=== PATIENT | male | born 1955 | race Caucasian/White ===

== ENCOUNTER 2021-10-24 13:10 | Observation (INO) | payer MEDICARE ==
[2021-10-24] MEDS ORDERED: DUONEB 0.5-3 MG/3 ml Neb IH ONE (13:45)
[2021-10-24] MEDS ORDERED: solu-MEDROL 125 MG, Sterile H2O 10 ml 2 ML IV ONE ×2 (13:45)
[2021-10-24] MEDS ORDERED: Zithromax 500 MG/ 250 ML NaCl Premix 500 MG/250 ML IVPB IV STA (13:45)
[2021-10-24] MEDS ORDERED: ROCEPHIN 2 Gm-D5w 50ML BAG** 2 G/50 ML IVPB IV STA (13:46)
[2021-10-24] MEDS ORDERED: Zithromax 500 MG/ 250 ML NaCl Premix 500 MG/250 ML IVPB IV ONE (14:02)
[2021-10-24] MEDS ORDERED: solu-MEDROL ONE (14:02)
[2021-10-24] MEDS ORDERED: ROCEPHIN 2 Gm-D5w 50ML BAG** 2 G/50 ML IVPB IV ONE (14:02)
[2021-10-24] MEDS ORDERED: Sterile H2O 10 ml IJ ONE (14:02)
--- NOTE | 2021-10-24 14:10 | ERPHSYRPT ---
- History of Present Illness Time Seen by Provider: 10/24/21 13:15 Source: patient, EMS Exam Limitations: clinical condition Patient Subjective Stated Complaint: Weakness Triage Nursing Assessment: Patient brought back to ED via EMS and transferred to bed with assist of 4. Patient A+O X3. Patient's skin flushed, warm and dry. EMS was called out for patient having weakness and not feeling well for several days and was covid positive, but patient has not ever been tested for COVID. Patient A+O X 2, disoriented to time. O2 88% on room air upon arrival. Lungs noted to have wheezing throughout. Patient denies pain or discomfort. Physician History: 66 years old male with history of hypertension, hyperlipidemia, diabetes mellitus is brought in the ER by EMS with several days to weeks history of generalized weakness fatigue and tiredness with cough productive of clear yellow sputum and increasing shortness of breath. Patient is unvaccinated against COVID-19. Family noticed some confusion this morning. Patient is awake alert and not fully oriented. Patient oxygen saturation is 88% on room air, placed on 3 L oxygen and currently around 96% with obvious wheezing. Not a good historian and history is limited. Patient moving all 4 extremities. Timing/Duration: week(s), constant, gradual onset, worse Activities at Onset: activity, rest Severity of Dyspnea-Max: moderate Severity of Dyspnea-Current: moderate Possible Cause: illness exposure Modifying Factors: Worsens With: activity, coughing, exertion Associated Symptoms: wheezing, weakness, productive cough Allergies/Adverse Reactions: No Known Drug Allergies Allergy (Verified 10/24/21 13:16) Home Medications: Hydrocodone/Acetaminophen [Hydrocodon-Acetaminophn 10-325] 1 tab PO Q4-6HPRN PRN 06/02/16 [History] lisinopriL [Lisinopril] 40 mg PO DAILY 06/02/16 [History] Atorvastatin Calcium [Lipitor] 40 mg PO DAILY 10/24/21 [History] Dulaglutide [Trulicity] 0.75 mg SQ WEEKLY 10/24/21 [History] Gabapentin [Neurontin] 600 mg PO TID 10/24/21 [History] Metformin HCl [Metformin ER Osmotic] 1,000 mg PO DAILY 10/24/21 [History] Hx Tetanus, Diphtheria Vaccination/Date Given: Yes Hx Influenza Vaccination/Date Given: No Hx Pneumococcal Vaccination/Date Given: No Immunizations Up to Date: Yes Travel Risk - International Travel Have you traveled outside of the country in past 3 weeks: No - Coronavirus Screening Are you exhibiting any of the following symptoms?: Yes Symptoms: Fever, Shortness of Breath, Vomiting/Diarrhea Close contact with a COVID-19 positive Pt in past 14-21 Days: No - Vaccine Status Have you recieved a Covid-19 vaccination: No - Review of Systems Constitutional: Fever, Chills, Weakness Eyes: No Symptoms Ears, Nose, & Throat: No Symptoms Respiratory: Cough, Dyspnea, Dyspnea on Exertion (LIMA), Wheezing Cardiac: No Symptoms Abdominal/Gastrointestinal: No Symptoms Genitourinary Symptoms: No Symptoms Musculoskeletal: Myalgias Skin: No Symptoms Neurological: No Symptoms Hematologic/Lymphatic: No Symptoms Immunological/Allergic: No Symptoms - Past Medical History Pertinent Past Medical History: Yes Neurological History: No Pertinent History ENT History: No Pertinent History Cardiac History: High Cholesterol, Hypertension Respiratory History: Sleep Apnea Endocrine Medical History: Diabetes Type II Musculoskeletal History: Arthritis GI Medical History: No Pertinent History History: No Pertinent History Psycho-Social History: No Pertinent History Male Reproductive Disorders: No Pertinent History Other Medical History: spondylosis, sciatica, obesity, polio with L UE affected. - Past Surgical History Past Surgical History: No Neuro Surgical History: No Pertinent History Cardiac: No Pertinent History Respiratory: No Pertinent History Gastrointestinal: No Pertinent History Genitourinary: No Pertinent History Musculoskeletal: No Pertinent History Male Surgical History: Prostate Surgery Other Surgical History: vasectomy - Social History Smoking Status: Never smoker Exposure to second hand smoke: No Drug Use: none Patient Lives Alone: No () - Nursing Vital Signs Nursing Vital Signs: Initial Vital Signs Temperature 101.5 F 10/24/21 13:17 Pulse Rate 112 H 10/24/21 13:17 Respiratory Rate 23 10/24/21 13:17 Blood Pressure 110/86 10/24/21 13:17 O2 Sat by Pulse Oximetry 88 L 10/24/21 13:17 Pain Scale Pain Intensity 0 - Physical Exam General Appearance: no apparent distress, alert Eye Exam: PERRL/EOMI, eyes nml inspection Ears, Nose, Throat Exam: nasal congestion, pharyngeal erythema Neck Exam: normal inspection, supple, full range of motion Respiratory Exam: diminished breath sounds, crackles/rales, rhonchi, wheezing Cardiovascular/Chest Exam: normal heart sounds, tachycardia Abdominal/Gastrointestinal Exam: soft, normal bowel sounds, No tenderness Extremity Exam: non-tender, normal range of motion Neurologic Exam: alert, cooperative, drafting technician II-XII nml as tested, No oriented x 3 Skin Exam: normal color SpO2 Interpretation: O2 applied SpO2: 88 O2 Delivery: Nasal Cannula Ordered Tests: Medication Summary Discontinued Medications Generic Name Dose Route Start Last Admin Trade Name Freq PRN Reason Stop Dose Admin Acetaminophen 1,000 mg 10/24/21 14:32 10/24/21 14:53 Acetaminophen 500 Mg Tablet PO 10/24/21 14:33 1,000 mg STAT ONE Administration Acetaminophen Confirm 10/24/21 14:46 Acetaminophen 500 Mg Tablet Administered 10/24/21 14:47 Dose 1,000 mg .ROUTE .STK-MED ONE Acetaminophen 650 mg 10/24/21 17:49 Acetaminophen 325 Mg Tablet PO 11/23/21 17:48 Q4H PRN PRN PAIN AND/OR FEVER Acetaminophen 650 mg 10/24/21 17:57 Acetaminophen 325 Mg Tablet PO 11/23/21 17:56 Q4H PRN PRN PAIN AND/OR FEVER Acetaminophen 500 - 1,000 mg 10/25/21 07:44 Acetaminophen 500 Mg Tablet PO 11/24/21 07:43 Q4H PRN PRN TEMP > 100.4 ORALLY Hydrocodone Bitart/Acetaminophen 1 tablet 10/24/21 21:08 10/27/21 09:15 Hydrocodone/Acetamin 10-325 Mg Tablet PO 10/29/21 21:07 1 tablet Q4H PRN PRN Administration PAIN Hydrocodone Bitart/Acetaminophen 1 tablet 10/25/21 08:28 Hydrocodone/Acetamin 10-325 Mg Tablet PO 10/30/21 08:27 Q4H PRN PRN PAIN Albuterol Sulfate 4 puff 10/24/21 14:30 10/24/21 14:25 Albuterol Common Canister Inhaler 10/24/21 14:31 4 puff STAT ONE Administration Albuterol Sulfate 4 puff 10/24/21 19:00 10/27/21 07:30 Albuterol Common Canister Inhaler 11/23/21 18:59 4 puff QIDRT VILMA Administration Albuterol Sulfate 4 puff 10/24/21 18:00 Albuterol Common Canister Inhaler 11/23/21 17:59 Q4H PRN PRN SHORTNESS OF BREATH/WHEEZING Albuterol/Ipratropium 3 ml 10/24/21 13:45 10/24/21 16:15 Ipratropium/Albuterol Sulfate 3 Ml Ampul.Neb IH 10/24/21 13:46 3 ml STAT ONE Administration Baricitinib 2 mg 10/25/21 10:00 10/27/21 09:16 Baricitinib 2 Mg Tablet PO 11/07/21 10:01 2 mg DAILY VILMA Administration Methylprednisolone Sodium 0 mg 10/24/21 13:45 10/24/21 14:08 Succinate 125 mg/ Sterile IV 10/24/21 13:46 125 mg Water 2 ml STAT ONE Administration Dexamethasone Sodium Phosphate 6 mg 10/25/21 10:00 Dexamethasone Sod Phosphate 10 Mg/Ml IV 11/24/21 09:59 DAILY [facility] Dexamethasone Sodium Phosphate 6 mg 10/25/21 10:00 Dexamethasone Sod Phosphate 10 Mg/Ml IV 11/24/21 09:59 DAILY [facility] Dexamethasone Sodium Phosphate 8 mg 10/24/21 18:17 10/24/21 18:46 Dexamethasone Sod Phosphate 10 Mg/Ml IV 11/23/21 18:14 8 mg DAILY [facility] Administration Dexamethasone Sodium Phosphate 8 mg 10/25/21 10:00 10/27/21 09:15 Dexamethasone Sod Phosphate 10 Mg/Ml IV 11/03/21 10:01 8 mg DAILY [facility] Administration Diphenoxylate HCl/Atropine 2 tablet 10/25/21 00:39 10/26/21 09:52 Diphenoxylate Hcl/Atropine 1 Tablet PO 11/24/21 00:38 2 tablet QID PRN PRN Administration DIARRHEA Enoxaparin Sodium 40 mg 10/25/21 10:00 Enoxaparin Sodium 40 Mg/0.4 Ml Syringe SQ 11/24/21 09:59 DAILY [facility] Enoxaparin Sodium 40 mg 10/25/21 10:00 Enoxaparin Sodium 40 Mg/0.4 Ml Syringe SQ 11/24/21 09:59 DAILY [facility] Enoxaparin Sodium 60 mg 10/24/21 18:17 10/24/21 19:07 Enoxaparin Sodium 40 Mg/0.4 Ml Syringe SQ 11/23/21 18:15 60 mg DAILY VILMA Administration Enoxaparin Sodium Confirm 10/24/21 18:46 Enoxaparin Sodium 60 Mg/0.6 Ml Syringe Administered 10/24/21 18:47 Dose 60 mg SQ .STK-MED ONE Enoxaparin Sodium 70 mg 10/25/21 10:00 10/27/21 09:16 Enoxaparin Sodium 80 Mg/0.8 Ml Syringe SQ 11/24/21 09:59 70 mg DAILY VILMA Administration Gabapentin 600 mg 10/24/21 22:00 10/27/21 09:14 Gabapentin 300 Mg Capsule PO 11/23/21 21:59 600 mg TID VILMA Administration Azithromycin 500 mg in 250 mls @ 250 mls/hr 10/24/21 13:45 10/24/21 15:10 Zithromax 500 Mg/ 250 Ml Nacl Premix IV 10/24/21 14:44 Infused STAT STA Infusion Ceftriaxone Sodium/Dextrose 2 g in 50 mls @ 100 mls/hr 10/24/21 13:46 10/24/21 14:51 Rocephin 2 Gm-D5w 50ml Bag IV 10/24/21 14:15 Infused STAT STA Infusion Azithromycin Confirm 10/24/21 14:02 Zithromax 500 Mg/ 250 Ml Nacl Premix Administered 10/24/21 14:03 Dose 500 mg in 250 mls @ ud IV .STK-MED ONE Ceftriaxone Sodium/Dextrose Confirm 10/24/21 14:02 Rocephin 2 Gm-D5w 50ml Bag Administered 10/24/21 14:03 Dose 2 g in 50 mls @ ud IV .STK-MED ONE Azithromycin 500 mg in 250 mls @ 250 mls/hr 10/25/21 10:00 Zithromax 500 Mg/ 250 Ml Nacl Premix IV 11/24/21 09:59 Q24H10 VILMA Ceftriaxone Sodium/Dextrose 2 g in 50 mls @ 100 mls/hr 10/25/21 10:00 Rocephin 2 Gm-D5w 50ml Bag IV 10/28/21 09:59 Q24H10 VILMA Remdesivir 200 mg/ Sodium 250 mls @ 125 mls/hr 10/24/21 17:49 10/24/21 19:01 Chloride IV 10/24/21 19:48 Not Given ONCE ONE Remdesivir 200 mg/ Sodium 250 mls @ 125 mls/hr 10/24/21 18:04 10/24/21 21:25 Chloride IV 10/24/21 20:03 125 mls/hr ONCE ONE Administration Remdesivir 100 mg/ Sodium 100 mls @ 100 mls/hr 10/25/21 21:00 10/26/21 21:19 Chloride IV 10/28/21 21:59 100 mls/hr Q24H VILMA Administration Sodium Chloride Confirm 10/24/21 21:12 Sodium Chloride 0.9% 250 Ml Administered 10/24/21 21:13 Dose 250 mls @ ud IV .STK-MED ONE Sodium Chloride 1,000 mls @ 30 mls/hr 10/25/21 07:45 Sodium Chloride 0.9% 1000 Ml IV 11/24/21 07:44 .Q24H VILMA Insulin Human Lispro 0 unit 10/24/21 17:49 Insulin Lispro 1 Unit SQ 11/23/21 17:48 UD PRN HYPERGLYCEMIA Insulin Human Lispro 0 unit 10/24/21 18:03 10/26/21 21:20 Insulin Lispro 1 Unit SQ 11/23/21 18:02 15 unit UD PRN Administration HYPERGLYCEMIA Lisinopril 40 mg 10/25/21 10:00 10/27/21 09:15 Lisinopril 20 Mg Tablet PO 11/24/21 09:59 40 mg DAILY VILMA Administration Lorazepam 1 mg 10/24/21 23:50 Lorazepam 2 Mg/1 Ml 2 Mg Vial IV 11/23/21 23:49 Q4H PRN PRN ANXIETY/AGITATION Metformin HCl 1,000 mg 10/25/21 09:00 10/27/21 08:09 Metformin Hcl 500 Mg Tablet PO 11/24/21 08:59 1,000 mg DAILY@0800 VILMA Administration Methylprednisolone Sodium Succinate Confirm 10/24/21 14:02 Methylprednis Sod Succ 125 Mg/2 Ml Vial Administered 10/24/21 14:03 Dose 125 mg .ROUTE .STK-MED ONE Miscellaneous Information 1 each 10/25/21 08:45 Medication Intervention 1 Each Each 11/24/21 08:44 .RN TO CHECK WITH PT VILMA Ondansetron HCl 4 mg 10/25/21 07:44 Ondansetron Hcl 4 Mg/2 Ml Vial IV 11/24/21 07:43 Q6H PRN PRN NAUSEA/VOMITING Remdesivir Confirm 10/24/21 21:12 Remdesivir 100 Mg Vial Administered 10/24/21 21:13 Dose 200 mg IV .STK-MED ONE Simvastatin 40 mg 10/25/21 10:00 10/27/21 09:14 Simvastatin 20 Mg Tablet PO 11/24/21 09:59 40 mg DAILY VILMA Administration Sterile Water Confirm 10/24/21 14:02 Water For Injection,Sterile 10 Ml Vial Administered 10/24/21 14:03 Dose 10 ml IJ .STK-MED ONE Lab/Rad Data: Laboratory Result Diagrams 10/24/21 13:45 10/24/21 13:45 Laboratory Results 10/24/21 10/24/21 10/24/21 Range/Units 16:58 15:24 14:14 WBC (4.0-10.5) K/mm3 RBC (4.1-5.6) M/mm3 Hgb (12.5-18.0) gm/dl Hct (42-50) % MCV (78-100) fl MCH (26-32) pg MCHC (32-36) g/dl RDW (11.5-14.0) % Plt Count (150-450) K/mm3 MPV (7.5-11.0) fl Segmented Neutrophils (36.-66.) % Lymphocytes (Manual) (24-44) % Monocytes (Manual) (0.0-12.0) % Platelet Estimate (NORMAL) RBC Morphology Sodium (137-145) mmol/L Potassium (3.5-5.1) mmol/L Chloride (98-107) mmol/L Carbon Dioxide (22-30) mmol/L Anion Gap (5-15) MEQ/L BUN (9-20) mg/dL Creatinine (0.66-1.25) mg/dL Estimated GFR ML/MIN Glucose (74-106) mg/dL Lactic Acid 1.5 (0.4-2.0) Calcium (8.4-10.2) mg/dL Magnesium (1.6-2.3) mg/dL Total Bilirubin (0.2-1.3) mg/dL AST (17-59) U/L ALT (0-50) U/L Alkaline Phosphatase (38-126) U/L Troponin I 0.032 (0.000-0.034) ng/mL NT-Pro-B Natriuret Pep (0-900) pg/mL Serum Total Protein (6.3-8.2) g/dL Albumin (3.5-5.0) g/dL Urine Color (YELLOW) Urine Appearance (CLEAR) Urine pH (5-6) Ur Specific [place] (1.005-1.025) Urine Protein (Negative) Urine Ketones (NEGATIVE) Urine Blood (0-5) Mate[place]/ul Urine Nitrite (NEGATIVE) Urine Bilirubin (NEGATIVE) Urine Urobilinogen (0-1) mg/dL Ur Leukocyte Esterase (NEGATIVE) Urine WBC (Auto) (0-5) /HPF Urine RBC (Auto) (0-2) /HPF U Epithel Cells (Auto) (FEW) /HPF Urine Bacteria (Auto) (NEGATIVE) /HPF Urine Culture Reflexed (NO) Urine Glucose (NEGATIVE) mg/dL Influenza Type A Ag NEGATIVE (NEGATIVE) Influenza Type B Ag NEGATIVE (NEGATIVE) RSV (PCR) NEGATIVE (Negative) SARS-CoV-2 (PCR) POSITIVE A (NEGATIVE) 10/24/21 10/24/21 10/24/21 Range/Units 13:47 13:45 13:45 WBC 10.9 H (4.0-10.5) K/mm3 RBC 4.28 (4.1-5.6) M/mm3 Hgb 12.7 (12.5-18.0) gm/dl Hct 39.2 L (42-50) % MCV 91.6 (78-100) fl MCH 29.7 (26-32) pg MCHC 32.4 (32-36) g/dl RDW 13.9 (11.5-14.0) % Plt Count 239 (150-450) K/mm3 MPV 9.1 (7.5-11.0) fl Segmented Neutrophils 85 H (36.-66.) % Lymphocytes (Manual) 8 L (24-44) % Monocytes (Manual) 7 (0.0-12.0) % Platelet Estimate NORMAL (NORMAL) RBC Morphology NORMAL Sodium 133 L (137-145) mmol/L Potassium 4.4 (3.5-5.1) mmol/L Chloride 98 (98-107) mmol/L Carbon Dioxide 23 (22-30) mmol/L Anion Gap 16.6 H (5-15) MEQ/L BUN 35 H (9-20) mg/dL Creatinine 1.25 (0.66-1.25) mg/dL Estimated GFR > 60.0 ML/MIN Glucose 157 H (74-106) mg/dL Lactic Acid (0.4-2.0) Calcium 8.6 (8.4-10.2) mg/dL Magnesium 1.9 (1.6-2.3) mg/dL Total Bilirubin 0.70 (0.2-1.3) mg/dL AST 69 H (17-59) U/L ALT 28 (0-50) U/L Alkaline Phosphatase 72 (38-126) U/L Troponin I (0.000-0.034) ng/mL NT-Pro-B Natriuret Pep 136 (0-900) pg/mL Serum Total Protein 6.6 (6.3-8.2) g/dL Albumin 3.6 (3.5-5.0) g/dL Urine Color BRENDA (YELLOW) Urine Appearance CLOUDY (CLEAR) Urine pH 5.0 (5-6) Ur Specific [place] 1.019 (1.005-1.025) Urine Protein 100 (Negative) Urine Ketones TRACE (NEGATIVE) Urine Blood MODERATE (0-5) Mate[place]/ul Urine Nitrite NEGATIVE (NEGATIVE) Urine Bilirubin NEGATIVE (NEGATIVE) Urine Urobilinogen NEGATIVE (0-1) mg/dL Ur Leukocyte Esterase NEGATIVE (NEGATIVE) Urine WBC (Auto) 3-5 (0-5) /HPF Urine RBC (Auto) 6-10 (0-2) /HPF U Epithel Cells (Auto) RARE (FEW) /HPF Urine Bacteria (Auto) FEW (NEGATIVE) /HPF Urine Culture Reflexed YES (NO) Urine Glucose NEGATIVE (NEGATIVE) mg/dL Influenza Type A Ag (NEGATIVE) Influenza Type B Ag (NEGATIVE) RSV (PCR) (Negative) SARS-CoV-2 (PCR) (NEGATIVE) 10/24/21 Range/Units 13:45 WBC (4.0-10.5) K/mm3 RBC (4.1-5.6) M/mm3 Hgb (12.5-18.0) gm/dl Hct (42-50) % MCV (78-100) fl MCH (26-32) pg MCHC (32-36) g/dl RDW (11.5-14.0) % Plt Count (150-450) K/mm3 MPV (7.5-11.0) fl Segmented Neutrophils (36.-66.) % Lymphocytes (Manual) (24-44) % Monocytes (Manual) (0.0-12.0) % Platelet Estimate (NORMAL) RBC Morphology Sodium (137-145) mmol/L Potassium (3.5-5.1) mmol/L Chloride (98-107) mmol/L Carbon Dioxide (22-30) mmol/L Anion Gap (5-15) MEQ/L BUN (9-20) mg/dL Creatinine (0.66-1.25) mg/dL Estimated GFR ML/MIN Glucose (74-106) mg/dL Lactic Acid (0.4-2.0) Calcium (8.4-10.2) mg/dL Magnesium (1.6-2.3) mg/dL Total Bilirubin (0.2-1.3) mg/dL AST (17-59) U/L ALT (0-50) U/L Alkaline Phosphatase (38-126) U/L Troponin I 0.027 (0.000-0.034) ng/mL NT-Pro-B Natriuret Pep (0-900) pg/mL Serum Total Protein (6.3-8.2) g/dL Albumin (3.5-5.0) g/dL Urine Color (YELLOW) Urine Appearance (CLEAR) Urine pH (5-6) Ur Specific [place] (1.005-1.025) Urine Protein (Negative) Urine Ketones (NEGATIVE) Urine Blood (0-5) Mateus/ul Urine Nitrite (NEGATIVE) Urine Bilirubin (NEGATIVE) Urine Urobilinogen (0-1) mg/dL Ur Leukocyte Esterase (NEGATIVE) Urine WBC (Auto) (0-5) /HPF Urine RBC (Auto) (0-2) /HPF U Epithel Cells (Auto) (FEW) /HPF Urine Bacteria (Auto) (NEGATIVE) /HPF Urine Culture Reflexed (NO) Urine Glucose (NEGATIVE) mg/dL Influenza Type A Ag (NEGATIVE) Influenza Type B Ag (NEGATIVE) RSV (PCR) (Negative) SARS-CoV-2 (PCR) (NEGATIVE) - Progress Progress: improved Air Movement: fair Progress Note: 10/24/21 15:29 66 years old is evaluated for fever chills weakness, confusion and difficulty breathing. Patient was hypoxic on room air around 88%, placed on 3 L oxygen and satting around 96%. Given albuterol puffs and Solu-Medrol, x-ray showed bilateral airspace disease and given a dose of antibiotics. Has minimally elevated white count, grossly unremarkable chemistries. Patient is a positive contact with COVID-19. COVID-19 testing is pending currently. Discussed with Dr. Barton and patient is being admitted. Blood Culture(s) Obtained: Yes Antibiotics given: Yes Discussed with Dr.: Other () Counseled pt/family regarding: lab results, diagnosis, rad results - Departure Departure Disposition: Observation Clinical Impression: COVID-19, Generalized weakness Respiratory failure Qualifiers: Chronicity: acute Respiratory failure complication: hypoxia Qualified Code(s): J96.01 - Acute respiratory failure with hypoxia Bilateral pneumonia Qualifiers: Pneumonia type: due to unspecified organism Lung location: unspecified part of lung Qualified Code(s): J18.9 - Pneumonia, unspecified organism Condition: Stable Critical Care Time: No
[2021-10-24 14:30] LABS: Hematocrit 39.2 % (42-50); Hemoglobin 12.7 gm/dl (12.5-18.0); Mean Cell Volume 91.6 fl (78-100); Mean Corpuscular Hemoglobin 29.7 pg (26-32); Mean Corpuscular Hgb Concent. 32.4 g/dl (32-36); Mean Platelet Volume 9.1 fl (7.5-11.0); Platelet Count 239 K/mm3 (150-450); Red Blood Count 4.28 M/mm3 (4.1-5.6); Red Cell Distribution Width 13.9 % (11.5-14.0); White Blood Count 10.9 K/mm3 (4.0-10.5)
[2021-10-24] MEDS ORDERED: VENTOLIN COMMON CANISTER IH ONE (14:30)
[2021-10-24] MEDS ORDERED: TYLENOL EXTRA STRENGTH 500 MG PO ONE (14:32)
[2021-10-24 14:41] LABS: ALBUMIN 3.6 g/dL (3.5-5.0); ALKALINE PHOSPHATASE 72 U/L (38-126); ANION GAP 16.6 MEQ/L (5-15); BLOOD UREA NITROGEN 35 mg/dL (9-20); CHLORIDE 98 mmol/L (98-107); Calcium 8.6 mg/dL (8.4-10.2); Carbon Dioxide 23 mmol/L (22-30); Creatinine 1 1.25 mg/dL (0.66-1.25); EST GLOMERULAR FILTRATION RATE > 60.0 ML/MIN; Glucose 157 mg/dL (74-106); MAGNESIUM 1.9 mg/dL (1.6-2.3); NT PRO BNP 136 pg/mL (0-900); Potassium 4.4 mmol/L (3.5-5.1); SGOT/AST 69 U/L (17-59); SGPT/ALT 28 U/L (0-50); SODIUM 133 mmol/L (137-145); Total Protein 6.6 g/dL (6.3-8.2)
[2021-10-24] MEDS ORDERED: TYLENOL EXTRA STRENGTH 500 MG ONE (14:46)
[2021-10-24 14:57] LABS: Appearance CLOUDY (CLEAR); Bacteria FEW /HPF (NEGATIVE); Bilirubin NEGATIVE (NEGATIVE); Blood MODERATE Ery/ul (0-5); Epithelial Cells RARE /HPF (FEW); Glucose NEGATIVE (NEGATIVE); Ketones TRACE (NEGATIVE); Leukocyte Esterase NEGATIVE (NEGATIVE); Nitrite NEGATIVE (NEGATIVE); Protein,Urine Dip 100 (Negative); Specific Gravity 1.019 (1.005-1.025); Urobilinogen NEGATIVE mg/dL (0-1)
[2021-10-24 15:01] LABS: Lymphocytes 8 % (24-44); Monocyte 7 % (0.0-12.0); Neutrophils 85 % (36.-66.); Platelet Estimate NORMAL (NORMAL); Total Cells Counted 100
[2021-10-24 16:29] LABS: INFLUENZA A NEGATIVE (NEGATIVE); INFLUENZA B NEGATIVE (NEGATIVE); RESPIRATORY SYNCTIAL VIRUS NEGATIVE (Negative)
[2021-10-24 16:39] LABS: SARS-CoV-2 Xpert Express POSITIVE (NEGATIVE)
[2021-10-24] MEDS ORDERED: TYLENOL 325 MG PO PRN ×2 (17:49→17:57)
[2021-10-24] MEDS ORDERED: REMDESIVIR 200 MG in Sodium Chloride 0.9% 250 ML 250 ML IV ONE ×2 (17:49→18:04)
[2021-10-24] MEDS ORDERED: HUMALOG SQ PRN (17:49)
[2021-10-24] MEDS: VENTOLIN COMMON CANISTER IH SCH (17:50)
[2021-10-24] MEDS ORDERED: VENTOLIN COMMON CANISTER IH PRN (18:00)
[2021-10-24] MEDS ORDERED: DECADRON 10MG INJ. IV SCH (18:17)
[2021-10-24] MEDS ORDERED: ENOXAPARIN SODIUM SQ SCH (18:17)
[2021-10-24] MEDS ORDERED: ENOXAPARIN SODIUM SQ ONE (18:46)
[2021-10-24] MEDS ORDERED: REMDESIVIR IV ONE (21:12)
[2021-10-24] MEDS ORDERED: Sodium Chloride 0.9% 250 ML 250 ML IV ONE (21:12)
[2021-10-24] MEDS: HYDROCODONE-ACETAMIN 10-325 MG PO PRN (21:25)
[2021-10-24] MEDS: NEURONTIN 300 MG PO SCH (21:25)
[2021-10-24] MEDS: HUMALOG SQ PRN (21:26)
--- NOTE | 2021-10-24 22:56 | XRAY ---
Indication: Fever and short of breath. Positive Covid 19. Comparison: June 02, 2016. Portable apical lordotic chest demonstrate new mild diffuse bilateral patchy airspace disease without consolidation/large effusion. Heart not enlarged again with tortuous descending aorta. Bony thorax intact again with mild osteopenia and degenerative changes.
[2021-10-24] MEDS ORDERED: Ativan 2 MG/1 ML VIAL IV PRN (23:50)
[2021-10-25] MEDS ORDERED: Lomotil PO PRN (00:39)
[2021-10-25] MEDS: HYDROCODONE-ACETAMIN 10-325 MG PO PRN ×5 (06:30→23:53)
[2021-10-25] MEDS: VENTOLIN COMMON CANISTER IH SCH ×4 (06:50→19:47)
[2021-10-25] MEDS ORDERED: Zofran 4 MG/2 ML VIAL IV PRN (07:44)
[2021-10-25] MEDS ORDERED: TYLENOL EXTRA STRENGTH 500 MG PO PRN (07:44)
[2021-10-25] MEDS ORDERED: Sodium Chloride 0.9% 1000 ML 1,000 ML IV SCH (07:45)
[2021-10-25] MEDS: HUMALOG SQ PRN ×4 (08:03→20:41)
[2021-10-25] MEDS ORDERED: HYDROCODONE-ACETAMIN 10-325 MG PO PRN (08:28)
[2021-10-25] MEDS ORDERED: NON-FORMULARY ITEM (Dulaglutide [Trulicity] 0.75 MG/0.5 ML Pen.Injctr) SQ SCH (08:30)
[2021-10-25] MEDS ORDERED: MEDICATION INTERVENTION MC SCH (08:45)
[2021-10-25 09:17] LABS: A-aADO2 110; ABG HEMOGLOBIN 13.6; ABG POTASSIUM 3.5 (3.5-5.1); ABG SITE RIGHT RADIAL; ALLEN TEST OK? YES; ARTERIAL BLD GAS O2 SATURATION 96.1 % (95-100); ARTERIAL BLOOD GAS BASE EXCESS -5.8 (-2.0-2.0); ARTERIAL BLOOD GAS FIO2 32 %; ARTERIAL BLOOD GAS PCO2 37 mmHg (35-45); ARTERIAL BLOOD GAS PO2 72 mmHg (75-100); ARTERIAL BLOOD GAS pH 7.33 (7.35-7.45); CARBOXYHEMOGLOBIN 1.6 % THgb (0.0-6.9); HCO3- 19.5 (22-28); HGB O2 SAT 93.9 g/dF (94-100); Methhemoglobin 0.8 % (1.4-1.5)
[2021-10-25 09:29] LABS: Hematocrit 38.7 % (42-50); Hemoglobin 12.7 gm/dl (12.5-18.0); Mean Cell Volume 90.6 fl (78-100); Mean Corpuscular Hemoglobin 29.7 pg (26-32); Mean Corpuscular Hgb Concent. 32.8 g/dl (32-36); Mean Platelet Volume 8.9 fl (7.5-11.0); Platelet Count 256 K/mm3 (150-450); Red Blood Count 4.27 M/mm3 (4.1-5.6); Red Cell Distribution Width 13.7 % (11.5-14.0); White Blood Count 9.8 K/mm3 (4.0-10.5)
[2021-10-25 09:31] LABS: ALBUMIN 3.7 g/dL (3.5-5.0); ANION GAP 17.1 MEQ/L (5-15); BILIRUBIN,TOTAL 0.5 mg/dL (0.2-1.3); Calcium 8.5 mg/dL (8.4-10.2); Creatinine 1 1.43 mg/dL (0.66-1.25); EST GLOMERULAR FILTRATION RATE 52.3 ML/MIN; Potassium 3.6 mmol/L (3.5-5.1); Total Protein 7.2 g/dL (6.3-8.2)
[2021-10-25] MEDS ORDERED: DECADRON 10MG INJ. IV SCH ×2 (10:00)
[2021-10-25] MEDS ORDERED: NON-FORMULARY ITEM (Lisinopril [Lisinopril] 40 MG Tablet) PO SCH (10:00)
[2021-10-25] MEDS ORDERED: NON-FORMULARY ITEM (Metformin Hcl [Metformin Er Osmotic] 1,000 MG Tab.Er.24) PO SCH (10:00)
[2021-10-25] MEDS ORDERED: ROCEPHIN 2 Gm-D5w 50ML BAG** 2 G/50 ML IVPB IV SCH (10:00)
[2021-10-25] MEDS ORDERED: ENOXAPARIN SODIUM SQ SCH ×3 (10:00)
[2021-10-25] MEDS ORDERED: Zithromax 500 MG/ 250 ML NaCl Premix 500 MG/250 ML IVPB IV SCH (10:00)
[2021-10-25] MEDS ORDERED: LIPITOR 40MG PO SCH (10:00)
[2021-10-25] MEDS: Glucophage 500 MG PO SCH (10:16)
[2021-10-25] MEDS: Zestril 20 MG PO SCH (10:17)
[2021-10-25] MEDS: NEURONTIN 300 MG PO SCH ×3 (10:17→21:33)
[2021-10-25] MEDS: OLUMIANT PO SCH (10:17)
[2021-10-25] MEDS: DECADRON 10MG INJ. IV SCH (10:18)
[2021-10-25] MEDS: ZOCOR 20MG PO SCH (10:18)
[2021-10-25] MEDS: ENOXAPARIN SODIUM SQ SCH (10:18)
[2021-10-25 11:48] LABS: BAND 1 % (0.0-2.0); Lymphocytes 5 % (24-44); Monocyte 2 % (0.0-12.0); Neutrophils 92 % (36.-66.); Total Cells Counted 100
[2021-10-25 11:51] LABS: Platelet Estimate NORMAL (NORMAL)
[2021-10-25] MEDS: REMDESIVIR 100 MG in Sodium Chloride 0.9% 100 ML BAG 100 ML IV SCH (20:30)
[2021-10-26] MEDS: HYDROCODONE-ACETAMIN 10-325 MG PO PRN ×4 (05:43→20:01)
[2021-10-26 06:48] LABS: Hematocrit 42.4 % (42-50); Hemoglobin 13.8 gm/dl (12.5-18.0); Mean Cell Volume 91.2 fl (78-100); Mean Corpuscular Hemoglobin 29.7 pg (26-32); Mean Corpuscular Hgb Concent. 32.5 g/dl (32-36); Mean Platelet Volume 9.3 fl (7.5-11.0); Platelet Count 287 K/mm3 (150-450); Red Blood Count 4.65 M/mm3 (4.1-5.6); Red Cell Distribution Width 13.7 % (11.5-14.0); White Blood Count 13.6 K/mm3 (4.0-10.5)
[2021-10-26 07:40] LABS: ALBUMIN 3.5 g/dL (3.5-5.0); ALKALINE PHOSPHATASE 80 U/L (38-126); ANION GAP 17.9 MEQ/L (5-15); BLOOD UREA NITROGEN 50 mg/dL (9-20); CHLORIDE 100 mmol/L (98-107); Calcium 8.9 mg/dL (8.4-10.2); Carbon Dioxide 20 mmol/L (22-30); Creatinine 1 1.21 mg/dL (0.66-1.25); EST GLOMERULAR FILTRATION RATE > 60.0 ML/MIN; Glucose 360 mg/dL (74-106); Potassium 3.9 mmol/L (3.5-5.1); SGOT/AST 56 U/L (17-59); SGPT/ALT 41 U/L (0-50); SODIUM 134 mmol/L (137-145); Total Protein 6.7 g/dL (6.3-8.2)
[2021-10-26] MEDS: Glucophage 500 MG PO SCH (08:09)
[2021-10-26] MEDS: HUMALOG SQ PRN ×4 (08:13→21:20)
[2021-10-26] MEDS: VENTOLIN COMMON CANISTER IH SCH ×4 (08:53→18:42)
[2021-10-26] MEDS: Zestril 20 MG PO SCH (09:12)
[2021-10-26] MEDS: ENOXAPARIN SODIUM SQ SCH (09:12)
[2021-10-26] MEDS: NEURONTIN 300 MG PO SCH ×3 (09:12→21:19)
[2021-10-26] MEDS: DECADRON 10MG INJ. IV SCH (09:13)
[2021-10-26] MEDS: ZOCOR 20MG PO SCH (09:13)
[2021-10-26] MEDS: OLUMIANT PO SCH (09:55)
--- NOTE | 2021-10-26 13:16 | PCM.NOTE ---
Date and Time: 10/26/21 1314 Subjective Assessment: still very shortness of breath - Review of Systems Constitutional: No Fever, No Chills Eyes: No Symptoms Ears, Nose, & Throat: No Symptoms Respiratory: Cough, Short Of Breath, Wheezing Cardiac: No Chest Pain, No Edema, No Syncope Abdominal/Gastrointestinal: No Abdominal Pain, No Nausea, No Vomiting, No Diarrhea Genitourinary Symptoms: No Dysuria Musculoskeletal: No Back Pain, No Neck Pain Skin: No Rash Neurological: No Dizziness, No Focal Weakness, No Sensory Changes Psychological: No Symptoms Endocrine: No Symptoms Hematologic/Lymphatic: No Symptoms Immunological/Allergic: No Symptoms Objective Exam General Appearance: no apparent distress, alert Neurologic Exam: alert, oriented x 3, cooperative, normal mood/affect, nml cerebellar function, sensation nml, No motor deficits Skin Exam: normal color, warm, dry Eye Exam: PERRL, EOMI, eyes nml inspection Ears, Nose, Throat Exam: normal ENT inspection, pharynx normal, moist mucous membranes Neck Exam: normal inspection, non-tender, supple, full range of motion Respiratory Exam: diminished breath sounds, crackles/rales, rhonchi, wheezing, No respiratory distress Cardiovascular Exam: regular rate/rhythm, normal heart sounds Gastrointestinal/Abdomen Exam: soft, No tenderness, No mass Extremity Exam: normal inspection, normal range of motion Back Exam: normal inspection, normal range of motion, No CVA tenderness, No vertebral tenderness Male Genitalia Exam: deferred Rectal Exam: deferred OBJECTIVE DATA Vital Signs: Vital Signs - 24 hr Temp Pulse Resp BP Pulse Ox 10/26/21 11:42 96.6 F 94 H 19 123/75 92 L 10/26/21 11:00 92 H 24 93 L 10/26/21 10:40 85 24 94 L 10/26/21 10:00 90 18 91 L 10/26/21 09:00 89 17 93 L 10/26/21 08:54 80 24 94 L 10/26/21 08:00 96.8 F 80 24 128/56 94 L 10/26/21 06:40 82 20 96 10/26/21 05:32 96.2 F 80 20 133/81 97 10/26/21 04:37 79 20 94 L 10/26/21 03:38 79 20 94 L 10/26/21 03:00 81 20 94 L 10/26/21 02:00 96.3 F 89 20 142/81 98 10/26/21 00:52 91 H 18 94 L 10/26/21 00:00 93 H 18 93 L 10/25/21 23:00 95 H 16 92 L 10/25/21 22:00 97 H 19 93 L 10/25/21 21:00 100 H 12 94 L 10/25/21 20:00 96.4 F 111 H 18 125/99 95 10/25/21 19:47 97 H 19 92 L 10/25/21 19:00 95 H 18 95 10/25/21 17:46 105 H 17 91 L 10/25/21 17:45 102 H 19 89 L 10/25/21 17:00 96.7 F 95 H 16 137/75 91 L 10/25/21 16:00 109 H 12 10/25/21 15:47 102 H 18 90 L 10/25/21 14:45 96 H 18 91 L 10/25/21 14:40 97 H 17 97 10/25/21 13:58 95 H 19 10/25/21 13:44 95 H 18 91 L Pain Assessment - Last Documented Pain Intensity 3 Pain Scale Used 0-10 Pain Scale Intake and Output: Intake & Output 10/24/21 10/25/21 10/26/21 10/27/21 11:59 11:59 11:59 11:59 Intake Total 200 1690 Output Total 250 Balance -50 1690 Weight 129.7 kg Lab Results: Lab Results-Last 24 Hours 10/25/21 10/25/21 10/26/21 Range/Units 16:01 20:33 06:35 WBC 13.6 H (4.0-10.5) K/mm3 RBC 4.65 (4.1-5.6) M/mm3 Hgb 13.8 (12.5-18.0) gm/dl Hct 42.4 (42-50) % MCV 91.2 (78-100) fl MCH 29.7 (26-32) pg MCHC 32.5 (32-36) g/dl RDW 13.7 (11.5-14.0) % Plt Count 287 (150-450) K/mm3 MPV 9.3 (7.5-11.0) fl D-Dimer (215-500) ng/mL Sodium (137-145) mmol/L Potassium (3.5-5.1) mmol/L Chloride (98-107) mmol/L Carbon Dioxide (22-30) mmol/L Anion Gap (5-15) MEQ/L BUN (9-20) mg/dL Creatinine (0.66-1.25) mg/dL Estimated GFR ML/MIN Glucose (74-106) mg/dL POC Glucometer 329 H 397 H (74 to 106) mg/dL Calcium (8.4-10.2) mg/dL Total Bilirubin (0.2-1.3) mg/dL AST (17-59) U/L ALT (0-50) U/L Alkaline Phosphatase (38-126) U/L Serum Total Protein (6.3-8.2) g/dL Albumin (3.5-5.0) g/dL 10/26/21 10/26/21 10/26/21 Range/Units 06:35 06:35 08:04 WBC (4.0-10.5) K/mm3 RBC (4.1-5.6) M/mm3 Hgb (12.5-18.0) gm/dl Hct (42-50) % MCV (78-100) fl MCH (26-32) pg MCHC (32-36) g/dl RDW (11.5-14.0) % Plt Count (150-450) K/mm3 MPV (7.5-11.0) fl D-Dimer 1148 H* (215-500) ng/mL Sodium 134 L (137-145) mmol/L Potassium 3.9 (3.5-5.1) mmol/L Chloride 100 (98-107) mmol/L Carbon Dioxide 20 L (22-30) mmol/L Anion Gap 17.9 H (5-15) MEQ/L BUN 50 H (9-20) mg/dL Creatinine 1.21 (0.66-1.25) mg/dL Estimated GFR > 60.0 ML/MIN Glucose 360 H (74-106) mg/dL POC Glucometer 358 H (74 to 106) mg/dL Calcium 8.9 (8.4-10.2) mg/dL Total Bilirubin 0.50 (0.2-1.3) mg/dL AST 56 (17-59) U/L ALT 41 (0-50) U/L Alkaline Phosphatase 80 (38-126) U/L Serum Total Protein 6.7 (6.3-8.2) g/dL Albumin 3.5 (3.5-5.0) g/dL 10/26/21 Range/Units 11:25 WBC (4.0-10.5) K/mm3 RBC (4.1-5.6) M/mm3 Hgb (12.5-18.0) gm/dl Hct (42-50) % MCV (78-100) fl MCH (26-32) pg MCHC (32-36) g/dl RDW (11.5-14.0) % Plt Count (150-450) K/mm3 MPV (7.5-11.0) fl D-Dimer (215-500) ng/mL Sodium (137-145) mmol/L Potassium (3.5-5.1) mmol/L Chloride (98-107) mmol/L Carbon Dioxide (22-30) mmol/L Anion Gap (5-15) MEQ/L BUN (9-20) mg/dL Creatinine (0.66-1.25) mg/dL Estimated GFR ML/MIN Glucose (74-106) mg/dL POC Glucometer 364 H (74 to 106) mg/dL Calcium (8.4-10.2) mg/dL Total Bilirubin (0.2-1.3) mg/dL AST (17-59) U/L ALT (0-50) U/L Alkaline Phosphatase (38-126) U/L Serum Total Protein (6.3-8.2) g/dL Albumin (3.5-5.0) g/dL Radiology Exams: Radiology Procedures Category Date Time Status CHEST 1 VIEW (PORTABLE) Stat Exams 10/24/21 14:03 Completed Assessment/Plan (1) Bilateral pneumonia Current Visit: Yes Status: Acute Qualifiers: Pneumonia type: due to unspecified organism Lung location: unspecified part of lung Qualified Code(s): J18.9 - Pneumonia, unspecified organism Assessment & Plan: 0012 RAD/CHEST 1 VIEW (PORTABLE) Indication: Fever and short of breath. Positive Covid 19. Comparison: June 02, 2016. Portable apical lordotic chest demonstrate new mild diffuse bilateral patchy airspace disease without consolidation/large effusion. Heart not enlarged again with tortuous descending aorta. Bony thorax intact again with mild osteopenia and degenerative changes. Chief Complaint Diagnosis Acute hypoxic respiratory failure Allergies Allergy/AdvReac Type Severity Reaction Status Date / Time No Known Drug Allergies Allergy Verified 10/24/21 13:16 Vital Signs (Last 24 hours) Temp Pulse Resp BP Pulse Ox 10/26/21 11:42 96.6 F 94 H 19 123/75 92 L 10/26/21 11:00 92 H 24 93 L 10/26/21 10:40 85 24 94 L 10/26/21 10:00 90 18 91 L 10/26/21 09:00 89 17 93 L 10/26/21 08:54 80 24 94 L 10/26/21 08:00 96.8 F 80 24 128/56 94 L 10/26/21 06:40 82 20 96 10/26/21 05:32 96.2 F 80 20 133/81 97 10/26/21 04:37 79 20 94 L 10/26/21 03:38 79 20 94 L 10/26/21 03:00 81 20 94 L 10/26/21 02:00 96.3 F 89 20 142/81 98 10/26/21 00:52 91 H 18 94 L 10/26/21 00:00 93 H 18 93 L 10/25/21 23:00 95 H 16 92 L 10/25/21 22:00 97 H 19 93 L 10/25/21 21:00 100 H 12 94 L 10/25/21 20:00 96.4 F 111 H 18 125/99 95 10/25/21 19:47 97 H 19 92 L 10/25/21 19:00 95 H 18 95 10/25/21 17:46 105 H 17 91 L 10/25/21 17:45 102 H 19 89 L 10/25/21 17:00 96.7 F 95 H 16 137/75 91 L 10/25/21 16:00 109 H 12 10/25/21 15:47 102 H 18 90 L 10/25/21 14:45 96 H 18 91 L 10/25/21 14:40 97 H 17 97 10/25/21 13:58 95 H 19 10/25/21 13:44 95 H 18 91 L Home Medications Medication Instructions Recorded Confirmed Last Taken Type Atorvastatin Calcium [Lipitor] 40 mg PO DAILY 10/24/21 10/24/21 Unknown History Dulaglutide [Trulicity] 0.75 mg SQ WEEKLY 10/24/21 10/24/21 Unknown History Gabapentin [Neurontin] 600 mg PO TID 10/24/21 10/24/21 Unknown History Metformin HCl [Metformin ER 1,000 mg PO DAILY 10/24/21 10/24/21 Unknown History Osmotic] Current Medications Generic Name Dose Route Start Last Admin Trade Name Freq PRN Reason Stop Dose Admin Acetaminophen 500 - 1,000 mg 10/25/21 07:44 Acetaminophen 500 Mg Tablet PO 11/24/21 07:43 Q4H PRN PRN TEMP > 100.4 ORALLY Hydrocodone Bitart/Acetaminophen 1 tablet 10/24/21 21:08 10/26/21 09:52 Hydrocodone/Acetamin 10-325 Mg Tablet PO 10/29/21 21:07 1 tablet Q4H PRN PRN Administration PAIN Albuterol Sulfate 4 puff 10/24/21 19:00 10/26/21 10:40 Albuterol Common Canister Inhaler 11/23/21 18:59 4 puff QIDRT VILMA Administration Albuterol Sulfate 4 puff 10/24/21 18:00 Albuterol Common Canister Inhaler 11/23/21 17:59 Q4H PRN PRN SHORTNESS OF BREATH/WHEEZING Baricitinib 2 mg 10/25/21 10:00 10/26/21 09:55 Baricitinib 2 Mg Tablet PO 11/07/21 10:01 2 mg DAILY VILMA Administration Dexamethasone Sodium Phosphate 8 mg 10/25/21 10:00 10/26/21 09:13 Dexamethasone Sod Phosphate 10 Mg/Ml IV 11/03/21 10:01 8 mg DAILY VILMA Administration Diphenoxylate HCl/Atropine 2 tablet 10/25/21 00:39 10/26/21 09:52 Diphenoxylate Hcl/Atropine 1 Tablet PO 11/24/21 00:38 2 tablet QID PRN PRN Administration DIARRHEA Enoxaparin Sodium 70 mg 10/25/21 10:00 10/26/21 09:12 Enoxaparin Sodium 80 Mg/0.8 Ml Syringe SQ 11/24/21 09:59 70 mg DAILY VILMA Administration Gabapentin 600 mg 10/24/21 22:00 10/26/21 09:12 Gabapentin 300 Mg Capsule PO 11/23/21 21:59 600 mg TID VILMA Administration Remdesivir 100 mg/ Sodium 100 mls @ 100 mls/hr 10/25/21 21:00 10/25/21 20:30 Chloride IV 10/28/21 21:59 100 mls/hr Q24H VILMA Administration Insulin Human Lispro 0 unit 10/24/21 18:03 10/26/21 11:33 Insulin Lispro 1 Unit SQ 11/23/21 18:02 11 unit UD PRN Administration HYPERGLYCEMIA Lisinopril 40 mg 10/25/21 10:00 10/26/21 09:12 Lisinopril 20 Mg Tablet PO 11/24/21 09:59 40 mg DAILY VILMA Administration Lorazepam 1 mg 10/24/21 23:50 Lorazepam 2 Mg/1 Ml 2 Mg Vial IV 11/23/21 23:49 Q4H PRN PRN ANXIETY/AGITATION Metformin HCl 1,000 mg 10/25/21 09:00 10/26/21 08:09 Metformin Hcl 500 Mg Tablet PO 11/24/21 08:59 1,000 mg DAILY@0800 VIMLA Administration Miscellaneous Information 1 each 10/25/21 08:45 Medication Intervention 1 Each Each 11/24/21 08:44 .RN TO CHECK WITH [facility] Ondansetron HCl 4 mg 10/25/21 07:44 Ondansetron Hcl 4 Mg/2 Ml Vial IV 11/24/21 07:43 Q6H PRN PRN NAUSEA/VOMITING Simvastatin 40 mg 10/25/21 10:00 10/26/21 09:13 Simvastatin 20 Mg Tablet PO 11/24/21 09:59 40 mg DAILY VILMA Administration Discontinued Medications Generic Name Dose Route Start Last Admin Trade Name Freq PRN Reason Stop Dose Admin Acetaminophen 1,000 mg 10/24/21 14:32 10/24/21 14:53 Acetaminophen 500 Mg Tablet PO 10/24/21 14:33 1,000 mg STAT ONE Administration Acetaminophen Confirm 10/24/21 14:46 Acetaminophen 500 Mg Tablet Administered 10/24/21 14:47 Dose 1,000 mg .ROUTE .STK-MED ONE Acetaminophen 650 mg 10/24/21 17:49 Acetaminophen 325 Mg Tablet PO 11/23/21 17:48 Q4H PRN PRN PAIN AND/OR FEVER Acetaminophen 650 mg 10/24/21 17:57 Acetaminophen 325 Mg Tablet PO 11/23/21 17:56 Q4H PRN PRN PAIN AND/OR FEVER Hydrocodone Bitart/Acetaminophen 1 tablet 10/25/21 08:28 Hydrocodone/Acetamin 10-325 Mg Tablet PO 10/30/21 08:27 Q4H PRN PRN PAIN Albuterol Sulfate 4 puff 10/24/21 14:30 10/24/21 14:25 Albuterol Common Canister Inhaler IH 10/24/21 14:31 4 puff STAT ONE Administration Albuterol/Ipratropium 3 ml 10/24/21 13:45 10/24/21 16:15 Ipratropium/Albuterol Sulfate 3 Ml Ampul.Neb IH 10/24/21 13:46 3 ml STAT ONE Administration Methylprednisolone Sodium 0 mg 10/24/21 13:45 10/24/21 14:08 Succinate 125 mg/ Sterile IV 10/24/21 13:46 125 mg Water 2 ml STAT ONE Administration Dexamethasone Sodium Phosphate 6 mg 10/25/21 10:00 Dexamethasone Sod Phosphate 10 Mg/Ml IV 11/24/21 09:59 DAILY [facility] Dexamethasone Sodium Phosphate 6 mg 10/25/21 10:00 Dexamethasone Sod Phosphate 10 Mg/Ml IV 11/24/21 09:59 DAILY [facility] Dexamethasone Sodium Phosphate 8 mg 10/24/21 18:17 10/24/21 18:46 Dexamethasone Sod Phosphate 10 Mg/Ml IV 11/23/21 18:14 8 mg DAILY VILMA Administration Enoxaparin Sodium 40 mg 10/25/21 10:00 Enoxaparin Sodium 40 Mg/0.4 Ml Syringe SQ 11/24/21 09:59 DAILY [facility] Enoxaparin Sodium 40 mg 10/25/21 10:00 Enoxaparin Sodium 40 Mg/0.4 Ml Syringe SQ 11/24/21 09:59 DAILY VILMA Enoxaparin Sodium 60 mg 10/24/21 18:17 10/24/21 19:07 Enoxaparin Sodium 40 Mg/0.4 Ml Syringe SQ 11/23/21 18:15 60 mg DAILY VILMA Administration Enoxaparin Sodium Confirm 10/24/21 18:46 Enoxaparin Sodium 60 Mg/0.6 Ml Syringe Administered 10/24/21 18:47 Dose 60 mg SQ .STK-MED ONE Azithromycin 500 mg in 250 mls @ 250 mls/hr 10/24/21 13:45 10/24/21 15:10 Zithromax 500 Mg/ 250 Ml Nacl Premix IV 10/24/21 14:44 Infused STAT STA Infusion Ceftriaxone Sodium/Dextrose 2 g in 50 mls @ 100 mls/hr 10/24/21 13:46 10/24/21 14:51 Rocephin 2 Gm-D5w 50ml Bag IV 10/24/21 14:15 Infused STAT STA Infusion Azithromycin Confirm 10/24/21 14:02 Zithromax 500 Mg/ 250 Ml Nacl Premix Administered 10/24/21 14:03 Dose 500 mg in 250 mls @ ud IV .STK-MED ONE Ceftriaxone Sodium/Dextrose Confirm 10/24/21 14:02 Rocephin 2 Gm-D5w 50ml Bag Administered 10/24/21 14:03 Dose 2 g in 50 mls @ ud IV .STK-MED ONE Azithromycin 500 mg in 250 mls @ 250 mls/hr 10/25/21 10:00 Zithromax 500 Mg/ 250 Ml Nacl Premix IV 11/24/21 09:59 Q24H10 VILMA Ceftriaxone Sodium/Dextrose 2 g in 50 mls @ 100 mls/hr 10/25/21 10:00 Rocephin 2 Gm-D5w 50ml Bag IV 10/28/21 09:59 Q24H10 VILMA Remdesivir 200 mg/ Sodium 250 mls @ 125 mls/hr 10/24/21 17:49 10/24/21 19:01 Chloride IV 10/24/21 19:48 Not Given ONCE ONE Remdesivir 200 mg/ Sodium 250 mls @ 125 mls/hr 10/24/21 18:04 10/24/21 21:25 Chloride IV 10/24/21 20:03 125 mls/hr ONCE ONE Administration Sodium Chloride Confirm 10/24/21 21:12 Sodium Chloride 0.9% 250 Ml Administered 10/24/21 21:13 Dose 250 mls @ ud IV .STK-MED ONE Sodium Chloride 1,000 mls @ 30 mls/hr 10/25/21 07:45 Sodium Chloride 0.9% 1000 Ml IV 11/24/21 07:44 .Q24H VILMA Insulin Human Lispro 0 unit 10/24/21 17:49 Insulin Lispro 1 Unit SQ 11/23/21 17:48 UD PRN HYPERGLYCEMIA Methylprednisolone Sodium Succinate Confirm 10/24/21 14:02 Methylprednis Sod Succ 125 Mg/2 Ml Vial Administered 10/24/21 14:03 Dose 125 mg .ROUTE .STK-MED ONE Remdesivir Confirm 10/24/21 21:12 Remdesivir 100 Mg Vial Administered 10/24/21 21:13 Dose 200 mg IV .STK-MED ONE Sterile Water Confirm 10/24/21 14:02 Water For Injection,Sterile 10 Ml Vial Administered 10/24/21 14:03 Dose 10 ml IJ .STK-MED ONE Intake & Output (Last 24 hours) 10/24/21 10/25/21 10/26/21 10/27/21 11:59 11:59 11:59 11:59 Intake Total 200 1690 Output Total 250 Balance -50 1690 Weight 129.7 kg Microbiology Results (Last 24 hours) 10/24/21 13:47 Catherized Urine Culture - Final NO GROWTH Laboratory Results (Last 24 hours) 10/26/21 10/26/21 10/26/21 11:25 08:04 06:35 WBC RBC Hgb Hct MCV MCH MCHC RDW Plt Count MPV D-Dimer 1148 H* Sodium Potassium Chloride Carbon Dioxide Anion Gap BUN Creatinine Estimated GFR Glucose POC Glucometer 364 H 358 H Calcium Total Bilirubin AST ALT Alkaline Phosphatase Serum Total Protein Albumin 10/26/21 10/26/21 10/25/21 06:35 06:35 20:33 WBC 13.6 H RBC 4.65 Hgb 13.8 Hct 42.4 MCV 91.2 MCH 29.7 MCHC 32.5 RDW 13.7 Plt Count 287 MPV 9.3 D-Dimer Sodium 134 L Potassium 3.9 Chloride 100 Carbon Dioxide 20 L Anion Gap 17.9 H BUN 50 H Creatinine 1.21 Estimated GFR > 60.0 Glucose 360 H POC Glucometer 397 H Calcium 8.9 Total Bilirubin 0.50 AST 56 ALT 41 Alkaline Phosphatase 80 Serum Total Protein 6.7 Albumin 3.5 10/25/21 16:01 WBC RBC Hgb Hct MCV MCH MCHC RDW Plt Count MPV D-Dimer Sodium Potassium Chloride Carbon Dioxide Anion Gap BUN Creatinine Estimated GFR Glucose POC Glucometer 329 H Calcium Total Bilirubin AST ALT Alkaline Phosphatase Serum Total Protein Albumin Orders (Last 24 hours) Category Date Time Status Consistent Carbohydrate Diet 2000 Calorie Diet 10/26/21 Breakfast Active CBC AM.LAB Lab 10/26/21 06:35 Completed CBC AM.LAB Lab 10/27/21 04:00 Ordered CBC AM.LAB Lab 10/28/21 04:00 Ordered CMP AM.LAB Lab 10/26/21 06:35 Completed CMP AM.LAB Lab 10/27/21 04:00 Ordered CMP AM.LAB Lab 10/28/21 04:00 Ordered D-DIMER QUANTITATIVE AM.LAB Lab 10/26/21 06:35 Completed D-DIMER QUANTITATIVE AM.LAB Lab 10/27/21 04:00 Ordered D-DIMER QUANTITATIVE AM.LAB Lab 10/28/21 04:00 Ordered POCT GLUCOSE Stat Lab 10/25/21 16:01 Completed POCT GLUCOSE Stat Lab 10/25/21 20:33 Completed POCT GLUCOSE Stat Lab 10/26/21 08:02 Received POCT GLUCOSE Stat Lab 10/26/21 08:03 Received POCT GLUCOSE Stat Lab 10/26/21 08:04 Completed POCT GLUCOSE Stat Lab 10/26/21 11:25 Completed Remdesivir 100 mg Med 10/25/21 21:00 Active NaCl 0.9% 100Ml [Sodium Chloride 0.9% 100 ML BAG] 100 ml IV Q24H Patient Care Notes (Last 24 hours) 10/26/21 10:00 (created 10/26/21 10:14) SBAR Note by Roselyn Andrade I am calling about DUTCH BYERS the patient's code status is Full Code The problem I am calling about is: Called And reported todays D-Dimer results , yesterdays D-Dimer and pt's daily dose of lovenox to Dr Madelyn Moore nurse. ASSESSMENT RECOMMENDATION Physician notified at [phone] New Orders received: Vital Signs (Last 4 hours) Temp Pulse Resp BP Pulse Ox 10/26/21 08:54 80 24 94 L 10/26/21 08:00 96.8 F 80 24 128/56 94 L 10/26/21 06:40 82 20 96 Diagnois, Code Status Date of Arrival on Unit 10/24/21 Admitted From Emergency Dept Diagnosis Acute hypoxic respiratory failure Resucitation Status Full Code Intake and Output 12 Hours 10/26/21 10/26/21 06:59 18:59 Intake Total 650 Balance 650 Intake: Intake, Oral Amount 450 Intake, IV Amount 200 Other: Number of Voids 2 Number of Bowel Movements 1 Physical Assessment Anxiety Level None,at ease,Awake,Calm,Low Mental Status Alert Patient Orientation Person,Place,Time Coma Scale Total 15 Breath Sounds [Anterior/ Diminished Posterior Bilateral Throughout ] Breath Sounds [Posterior Clear,Diminished Bilateral] Breath Sounds [Anterior Clear,Diminished Bilateral Throughout] Breath Sounds [Anterior Clear Bilateral Throughout] Breath Sounds [Posterior Left Diminished Throughout] Breath Sounds [Posterior Right Diminished Throughout] Cardiac Rhythm-[facility] Sinus Arrhythmia Change from Baseline: No Bowel Sounds [All Quadrants] Active Abdomen Description Soft,Large,Round,Non-Tender Urine Appearance Not Assessed Urine Color Not assessed at this time Skin Color [place] Skin Temperature Warm Pain Scale (Last 12 Hours) Pain Intensity 7 Pain Intensity 3 Pain Intensity 6 Pain Intensity 3 Pain Intensity 3 Pain Intensity 6 Pain Intensity 6 PAST MEDICAL HISTORY Neurological History No Pertinent History ENT History Cataracts Endocrine Medical History Diabetes Type II Respiratory History Sleep Apnea Cardiac History High Cholesterol,Hypertension GI Medical History No Pertinent History History No Pertinent History Pyscho-Social History No Pertinent History Communicable Disease No Pertinent History Comment spondylosis, sciatica, obesity, polio with L UE affected. Diabetic (Last 12 Hours) Time 07:30 POCT Glucose (LAST VALUE) 358 mg/dL (74 to 106) H POCT Glucose (LAST VALUE) 358 mg/dL (74 to 106) H Diet Order (Last 12 Hours) 10/26/21 Breakfast Consistent Carbohydrate Diet 1999 Calorie Lab Results (Last 12 Hours) 10/26/21 10/26/21 10/26/21 Range/Units 08:04 06:35 06:35 WBC (4.0-10.5) K/mm3 RBC (4.1-5.6) M/mm3 Hgb (12.5-18.0) gm/dl Hct (42-50) % MCV (78-100) fl MCH (26-32) pg MCHC (32-36) g/dl RDW (11.5-14.0) % Plt Count (150-450) K/mm3 MPV (7.5-11.0) fl D-Dimer 1148 H* (215-500) ng/mL Sodium 134 L (137-145) mmol/L Potassium 3.9 (3.5-5.1) mmol/L Chloride 100 (98-107) mmol/L Carbon Dioxide 20 L (22-30) mmol/L Anion Gap 17.9 H (5-15) MEQ/L BUN 50 H (9-20) mg/dL Creatinine 1.21 (0.66-1.25) mg/dL Estimated GFR > 60.0 ML/MIN Glucose 360 H (74-106) mg/dL POC Glucometer 358 H (74 to 106) mg/dL Calcium 8.9 (8.4-10.2) mg/dL Total Bilirubin 0.50 (0.2-1.3) mg/dL AST 56 (17-59) U/L ALT 41 (0-50) U/L Alkaline Phosphatase 80 (38-126) U/L Serum Total Protein 6.7 (6.3-8.2) g/dL Albumin 3.5 (3.5-5.0) g/dL 10/26/21 Range/Units 06:35 WBC 13.6 H (4.0-10.5) K/mm3 RBC 4.65 (4.1-5.6) M/mm3 Hgb 13.8 (12.5-18.0) gm/dl Hct 42.4 (42-50) % MCV 91.2 (78-100) fl MCH 29.7 (26-32) pg MCHC 32.5 (32-36) g/dl RDW 13.7 (11.5-14.0) % Plt Count 287 (150-450) K/mm3 MPV 9.3 (7.5-11.0) fl D-Dimer (215-500) ng/mL Sodium (137-145) mmol/L Potassium (3.5-5.1) mmol/L Chloride (98-107) mmol/L Carbon Dioxide (22-30) mmol/L Anion Gap (5-15) MEQ/L BUN (9-20) mg/dL Creatinine (0.66-1.25) mg/dL Estimated GFR ML/MIN Glucose (74-106) mg/dL POC Glucometer (74 to 106) mg/dL Calcium (8.4-10.2) mg/dL Total Bilirubin (0.2-1.3) mg/dL AST (17-59) U/L ALT (0-50) U/L Alkaline Phosphatase (38-126) U/L Serum Total Protein (6.3-8.2) g/dL Albumin (3.5-5.0) g/dL Microbiology Results (Last 12 Hours) 10/24/21 13:47 Urine Culture - Final Catherized NO GROWTH Orders (Last 12 Hours) Category Date Time Status Consistent Carbohydrate Diet 2000 Calorie Diet 10/26/21 Breakfast Active CBC AM.LAB Lab 10/27/21 04:00 Ordered CBC AM.LAB Lab 10/28/21 04:00 Ordered CMP AM.LAB Lab 10/27/21 04:00 Ordered CMP AM.LAB Lab 10/28/21 04:00 Ordered D-DIMER QUANTITATIVE AM.LAB Lab 10/27/21 04:00 Ordered D-DIMER QUANTITATIVE AM.LAB Lab 10/28/21 04:00 Ordered POCT GLUCOSE Stat Lab 10/26/21 08:02 Received POCT GLUCOSE Stat Lab 10/26/21 08:03 Received Nursing Notes (Last 12 hours) 10/26/21 07:02 Nursing Note by Roselyn Jaramillo o2 decreased to 4 liters due to the fact patient had o2 sats in mid 90's all noct Initialized on 10/26/21 07:02 - END OF NOTE Active Visit Medications Generic Name Dose Route Start Last Admin Trade Name Freq PRN Reason Stop Dose Admin Acetaminophen 500 - 1,000 mg 10/25/21 07:44 Acetaminophen 500 Mg Tablet PO 11/24/21 07:43 Q4H PRN PRN TEMP > 100.4 ORALLY Hydrocodone Bitart/Acetaminophen 1 tablet 10/24/21 21:08 10/26/21 09:52 Hydrocodone/Acetamin 10-325 Mg Tablet PO 10/29/21 21:07 1 tablet Q4H PRN PRN Administration PAIN Albuterol Sulfate 4 puff 10/24/21 19:00 10/26/21 08:53 Albuterol Common Canister Inhaler 11/23/21 18:59 4 puff QIDRT VILMA Administration Albuterol Sulfate 4 puff 10/24/21 18:00 Albuterol Common Canister Inhaler 11/23/21 17:59 Q4H PRN PRN SHORTNESS OF BREATH/WHEEZING Baricitinib 2 mg 10/25/21 10:00 10/25/21 10:17 Baricitinib 2 Mg Tablet PO 11/07/21 10:01 2 mg DAILY VILMA Administration Dexamethasone Sodium Phosphate 8 mg 10/25/21 10:00 10/26/21 09:13 Dexamethasone Sod Phosphate 10 Mg/Ml IV 11/03/21 10:01 8 mg DAILY VILMA Administration Diphenoxylate HCl/Atropine 2 tablet 10/25/21 00:39 10/26/21 09:52 Diphenoxylate Hcl/Atropine 1 Tablet PO 11/24/21 00:38 2 tablet QID PRN PRN Administration DIARRHEA Enoxaparin Sodium 70 mg 10/25/21 10:00 10/26/21 09:12 Enoxaparin Sodium 80 Mg/0.8 Ml Syringe SQ 11/24/21 09:59 70 mg DAILY VILMA Administration Gabapentin 600 mg 10/24/21 22:00 10/26/21 09:12 Gabapentin 300 Mg Capsule PO 11/23/21 21:59 600 mg TID VILMA Administration Remdesivir 100 mg/ Sodium 100 mls @ 100 mls/hr 10/25/21 21:00 10/25/21 20:30 Chloride IV 10/28/21 21:59 100 mls/hr Q24H VILMA Administration Insulin Human Lispro 0 unit 10/24/21 18:03 10/26/21 08:13 Insulin Lispro 1 Unit SQ 11/23/21 18:02 11 unit UD PRN Administration HYPERGLYCEMIA Lisinopril 40 mg 10/25/21 10:00 10/26/21 09:12 Lisinopril 20 Mg Tablet PO 11/24/21 09:59 40 mg DAILY VILMA Administration Lorazepam 1 mg 10/24/21 23:50 Lorazepam 2 Mg/1 Ml 2 Mg Vial IV 11/23/21 23:49 Q4H PRN PRN ANXIETY/AGITATION Metformin HCl 1,000 mg 10/25/21 09:00 10/26/21 08:09 Metformin Hcl 500 Mg Tablet PO 11/24/21 08:59 1,000 mg DAILY@0800 VILMA Administration Miscellaneous Information 1 each 10/25/21 08:45 Medication Intervention 1 Each Each 11/24/21 08:44 .RN TO CHECK WITH PT VILMA Ondansetron HCl 4 mg 10/25/21 07:44 Ondansetron Hcl 4 Mg/2 Ml Vial IV 11/24/21 07:43 Q6H PRN PRN NAUSEA/VOMITING Simvastatin 40 mg 10/25/21 10:00 10/26/21 09:13 Simvastatin 20 Mg Tablet PO 11/24/21 09:59 40 mg DAILY VILMA Administration Home Medications Medication Instructions Recorded Confirmed Last Taken Type Atorvastatin Calcium [Lipitor] 40 mg PO DAILY 10/24/21 10/24/21 Unknown History Dulaglutide [Trulicity] 0.75 mg SQ WEEKLY 10/24/21 10/24/21 Unknown History Gabapentin [Neurontin] 600 mg PO TID 10/24/21 10/24/21 Unknown History Metformin HCl [Metformin ER 1,000 mg PO DAILY 10/24/21 10/24/21 Unknown History Osmotic] Initialized on 10/26/21 10:14 - END OF NOTE 10/26/21 07:02 Nursing Note by Roselyn Jaramillo o2 decreased to 4 liters due to the fact patient had o2 sats in mid 90's all noct Initialized on 10/26/21 07:02 - END OF NOTE 10/25/21 18:42 Nursing Note by Roselyn Andrade Noted pt sleeping in his chair;SPo2 81%. Pt awake and talking without s/s distress at this time. Pt oxygen increased to 5 l per N/C at this time; Spo2 88%. Called RT, [place], with update. pt continue without SOB noted. HR 101 R 18. Call light in reach. Initialized on 10/25/21 18:42 - END OF NOTE Code(s): J18.9 - PNEUMONIA, UNSPECIFIED ORGANISM (2) COVID-19 Current Visit: Yes Status: Acute Code(s): U07.1 - COVID-19 (3) Respiratory failure Current Visit: Yes Status: Acute Qualifiers: Chronicity: acute Respiratory failure complication: hypoxia Qualified Code(s): J96.01 - Acute respiratory failure with hypoxia Code(s): J96.90 - RESPIRATORY FAILURE, UNSP, UNSP W HYPOXIA OR HYPERCAPNIA (4) Dyspnea Current Visit: No Status: Acute Code(s): R06.00 - DYSPNEA, UNSPECIFIED
[2021-10-26] MEDS: REMDESIVIR 100 MG in Sodium Chloride 0.9% 100 ML BAG 100 ML IV SCH (21:19)
[2021-10-27] MEDS: HYDROCODONE-ACETAMIN 10-325 MG PO PRN ×3 (00:02→09:15)
[2021-10-27 07:19] LABS: Hematocrit 37.2 % (42-50); Hemoglobin 12.3 gm/dl (12.5-18.0); Mean Cell Volume 90.1 fl (78-100); Mean Corpuscular Hemoglobin 29.8 pg (26-32); Mean Corpuscular Hgb Concent. 33.1 g/dl (32-36); Mean Platelet Volume 9.1 fl (7.5-11.0); Platelet Count 339 K/mm3 (150-450); Red Blood Count 4.13 M/mm3 (4.1-5.6); Red Cell Distribution Width 13.5 % (11.5-14.0); White Blood Count 12.1 K/mm3 (4.0-10.5)
[2021-10-27] MEDS: VENTOLIN COMMON CANISTER IH SCH (07:30)
[2021-10-27 07:54] LABS: ALBUMIN 3.5 g/dL (3.5-5.0); ALKALINE PHOSPHATASE 69 U/L (38-126); ANION GAP 12.8 MEQ/L (5-15); BLOOD UREA NITROGEN 49 mg/dL (9-20); CHLORIDE 101 mmol/L (98-107); Carbon Dioxide 25 mmol/L (22-30); Creatinine 1 1.15 mg/dL (0.66-1.25); EST GLOMERULAR FILTRATION RATE > 60.0 ML/MIN; Glucose 343 mg/dL (74-106); Potassium 3.7 mmol/L (3.5-5.1); SGOT/AST 41 U/L (17-59); SGPT/ALT 40 U/L (0-50); SODIUM 135 mmol/L (137-145); Total Protein 6.8 g/dL (6.3-8.2)
[2021-10-27] MEDS: Glucophage 500 MG PO SCH (08:09)
[2021-10-27 09:06] VITALS: BP 131/77
[2021-10-27 09:07] VITALS: PULSE 86
[2021-10-27] MEDS: NEURONTIN 300 MG PO SCH (09:14)
[2021-10-27] MEDS: ZOCOR 20MG PO SCH (09:14)
[2021-10-27] MEDS: DECADRON 10MG INJ. IV SCH (09:15)
[2021-10-27] MEDS: Zestril 20 MG PO SCH (09:15)
[2021-10-27] MEDS: ENOXAPARIN SODIUM SQ SCH (09:16)
[2021-10-27] MEDS: OLUMIANT PO SCH (09:16)
--- NOTE | 2021-10-27 15:40 | DS ---
ADMISSION DIAGNOSES: 1) COVID gastroenteritis. 2) COVID pneumonia with hypoxia. DISCHARGE DIAGNOSES: 1) COVID GASTROENTERITIS. 2) COVID PNEUMONIA WITH HYPOXIA. DISCHARGE MEDICATIONS: O2 at 3 liters, Lomotil 1 or 2 every 4 hours PRN, continue on his Lipitor, Trulicity, gabapentin, hydrocodone 10/325 mg 1 every six hours PRN, lisinopril 40 and Metformin 1,000 q.d. HOSPITAL COURSE: The patient came in basically because of diarrhea and vomiting for four or five days. However, his O2 was low. He had some COVID-type findings on his chest x-ray. His white count went up to 12,000. However, his fever stayed down and he felt good really on the second day he was here. His O2 requirement has stayed normal so probably his white count is up due to steroids. He is on Decadron of course. D-dimer went as high as 1200 however it came down today to 700, I believe. He is not coughing. He is walking around the room. He has been eating since he got here. DISPOSITION: The patient is on the above medications. He is to see his doctor in two weeks, call if his O2 saturations drop below 80, come back or return to the emergency room. 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 PROGNOSIS: Good.
[2021-10-28 08:21] VITALS: O2SAT 88
== END 2021-10-27 11:20 | disposition home or self-care (01) ==
LOC: ED 13:10 → MED SURG 17:28
PROVIDERS: ADMIT Family Medicine; ATTEND Family Medicine
DX: U07.1 COVID-19 (principal); K52.9 Noninfective gastroenteritis and colitis, unspecified; J96.01 Acute respiratory failure with hypoxia; J18.9 Pneumonia, unspecified organism; R53.1 Weakness; E11.9 Type 2 diabetes mellitus without complications; E78.5 Hyperlipidemia, unspecified; I10 Essential (primary) hypertension; Z79.899 Other long term (current) drug therapy; Z20.828 Contact with and (suspected) exposure to other viral communicable diseases
CPT/HCPCS: 0241U; 36000; 36415; 36600; 71045; 80053; 81001; 82375; 82803; 82947; 83605; 83735; 83880; 84484; 85025; 85027; 85379; 87040; 87086; 93005; 93041; 93268; 94640; 94762; 96365; 96374; 99285; G0378; J0456; J0696; J1100; J1650; J1817; J2930; A9270-GY

== ENCOUNTER 2025-08-03 22:30 | Observation (INO) | payer MEDICARE, SELFPAY ==
--- NOTE | 2025-08-03 22:44 | ERPHSYRPT ---
- History of Present Illness Time Seen by Provider: 08/03/25 22:32 Source: patient, EMS Exam Limitations: no limitations Patient Subjective Stated Complaint: pt reports urinary retention with extreme pain. states he was recently seen at this ED and received 2 units of blood. reports recent prostate CA diagnosis. Triage Nursing Assessment: pt is aox3, pupils perrl, afebrile, pt resps easy and non labored, cap refill < 3 seconds, radial pulses strong and equal, abdomen is distended, petechial rash noted to abdomen, tenderness noted over the bladder, pt skin pale warm dry. Physician History: 69-year-old male presents to the emergency room with unable to pass urine and retention patient reports he was recently seen he is good history of prostate cancer reports he received some blood transfusions as he was passing blood in his urine he reports he is still passing some blood but recently he is having retention denies seeing a urologist as of yet denies any fevers or chills denies any chest pain or shortness of breath denies any dizziness patient is now in ED for further eval Timing/Duration: today Activites at Onset: none Quality: pressure Onset Location: periumbilical Severity of Pain-Max: moderate Severity of Pain-Current: mild Modifying Factors: Improves With: nothing Associated Symptoms: abdominal pain Allergies/Adverse Reactions: No Known Drug Allergies Allergy (Verified 08/03/25 22:43) Home Medications: Atorvastatin Calcium [Lipitor] 40 mg PO DAILY 10/24/21 [History] Gabapentin [Neurontin] 600 mg PO TID 10/24/21 [History] Buspirone HCl 5 mg [Buspar 5 mg] 15 mg PO HS 07/29/25 [History] Hydrocodone/Acetaminophen [Hydrocodone-Acetamin 5-325 mg] 10 mg PO QID 07/29/25 [History] Ondansetron ODT 4 MG [Zofran Odt 4 mg] 4 mg PO Q6H PRN PRN 07/29/25 [History] Tamsulosin HCl [Flomax] 0.4 mg PO BID 07/29/25 [History] Hx Tetanus, Diphtheria Vaccination/Date Given: Yes Hx Influenza Vaccination/Date Given: No Hx Pneumococcal Vaccination/Date Given: No Immunizations Up to Date: No Travel Risk - International Travel Have you traveled outside of the country in past 3 weeks: No - Emerging Infectious Disease Are you exhibiting symptoms associated with any current EIDs: No Symptoms: Abdominal Pain, Shortness of Breath - Past Medical History Pertinent Past Medical History: Yes Neurological History: No Pertinent History ENT History: Other Cardiac History: High Cholesterol, Hypertension Respiratory History: Sleep Apnea, Other Endocrine Medical History: Diabetes Type II Musculoskeletal History: Arthritis GI Medical History: No Pertinent History History: Other Psycho-Social History: No Pertinent History Male Reproductive Disorders: Prostate Cancer Other Medical History: spondylosis, sciatica, obesity, polio with L UE affected, Covid. ANEMIA. Prostate Cancer DX - Past Surgical History Past Surgical History: Yes Neuro Surgical History: No Pertinent History Cardiac: No Pertinent History Respiratory: No Pertinent History Gastrointestinal: No Pertinent History Genitourinary: No Pertinent History Musculoskeletal: Joint Replacement Male Surgical History: Vasectomy Other Surgical History: vasectomy, bilateral lense replacement. TOTAL LEFT KNEE REPLACEMENT Significant Family History: no pertinent family hx - Social History Smoking Status: Never smoker Exposure to second hand smoke: No Drug Use: none - Social Determinants of Health Will the patient participate in the screening: Yes Do you worry about a steady place to live?: No Do you have any problems with any of the following?: No known problems In the past 12 months,have you had to go without utilities?: No Transportation Issues: No Has anyone in your support network made you feel unsafe?: No Have you or anyone in your house had to go w/o enough food: No - Review of Systems Constitutional: No Fever, No Chills Eyes: No Symptoms Ears, Nose, & Throat: No Symptoms Respiratory: No Cough, No Dyspnea Cardiac: No Chest Pain, No Edema, No Syncope Abdominal/Gastrointestinal: Abdominal Pain, No Nausea, No Vomiting, No Diarrhea Genitourinary Symptoms: Urinary Retention, No Dysuria Musculoskeletal: No Back Pain, No Neck Pain Skin: No Rash Neurological: No Dizziness, No Focal Weakness, No Sensory Changes Psychological: No Symptoms Endocrine: No Symptoms All Other Systems: Reviewed and Negative - Nursing Vital Signs Nursing Vital Signs: Initial Vital Signs Temperature 98.0 F 08/03/25 22:33 Pulse Rate 103 H 08/03/25 22:33 Respiratory Rate 16 08/03/25 22:33 Blood Pressure 139/86 08/03/25 22:33 O2 Sat by Pulse Oximetry 97 08/03/25 22:33 Pain Scale Pain Intensity 7 - Physical Exam General Appearance: no apparent distress, alert Eye Exam: PERRL/EOMI Ears, Nose, Throat Exam: pharynx normal, moist mucous membranes Neck Exam: normal inspection, supple Respiratory Exam: normal breath sounds, lungs clear Cardiovascular Exam: regular rate/rhythm, No edema Gastrointestinal/Abdomen Exam: soft, No tenderness Male Genital Exam: bleeding (From the [place] insertion patient has bloody urine) Back Exam: normal inspection, No CVA tenderness Extremity Exam: normal inspection, normal range of motion, No pedal edema Neurologic Exam: alert, oriented x 3, cooperative, sensation nml, No motor deficits Skin Exam: normal color, warm, dry, No rash SpO2: 97 - Course Nursing assessment & vital signs reviewed: Yes Ordered Tests: Active Orders 24 hr Category Date Time Status Catheter-[place] STAT Care 08/03/25 22:42 Active CBC W DIFF Stat Lab 08/03/25 22:58 Completed CMP Stat Lab 08/03/25 22:58 Completed CULTURE,URINE Stat Lab 08/03/25 22:38 Received Manual Differential NC Stat Lab 08/03/25 22:58 Completed UA W/RFX UR CULTURE Stat Lab 08/03/25 22:38 Received Transfer Order Routine Transfer 08/03/25 Ordered Lab/Rad Data: Laboratory Result Diagrams 08/03/25 22:58 08/03/25 22:58 Laboratory Results 08/03/25 08/03/25 Range/Units 22:58 22:58 WBC 6.1 (4.23-9.07) x10^3/uL RBC 2.28 L (4.63-6.08) x10^6/uL Hgb 6.7 L* (13.7-17.5) g/dL Hct 21.1 L (40.1-51.0) % MCV 92.5 H (79.0-92.2) fL MCH 29.4 (25.7-32.2) pg MCHC 31.8 L (32.3-36.5) g/dL RDW 18.6 H (11.6-14.4) % Plt Count 13 L* (163-337) x10^3/uL MPV 11.3 (9.4-12.4) fL Sodium 136 (135-145) mmol/L Potassium 3.8 (3.5-5.1) mmol/L Chloride 103 (98-107) mmol/L Carbon Dioxide 23 (22-30) mmol/L Anion Gap 13.2 (5-15) MEQ/L BUN 17 (9-20) mg/dL Creatinine 1.15 (0.66-1.25) mg/dL Estimated GFR 68.0 ML/MIN Glucose 104 (74-106) mg/dL Calcium 9.1 (8.4-10.2) mg/dL Total Bilirubin 0.50 (0.2-1.3) mg/dL AST 21 (17-59) U/L ALT 8 (0-50) U/L Alkaline Phosphatase 157 H (38-126) U/L Serum Total Protein 6.1 L (6.3-8.2) g/dL Albumin 3.5 (3.5-5.0) g/dL - Progress Progress Note: 08/03/25 22:46 Patient was retaining urine in the bladder on the ultrasound patient was cathed for comfort and [place] was anchored 08/03/25 23:28 Discussed with the hospitalist who accepts the patient for anemia urinary retention and hematuria - Departure Departure Disposition: Observation Clinical Impression: Urinary retention, Prostate cancer metastatic to bone Hematuria Qualifiers: Hematuria type: unspecified type Qualified Code(s): R31.9 - Hematuria, unspecified Anemia Qualifiers: Anemia type: unspecified type Qualified Code(s): D64.9 - Anemia, unspecified Condition: Stable Critical Care Time: No Referrals: KIRSTEN PASTOR [Primary Care Provider, [facility]] - Follow up/PCP as directed
[2025-08-03 23:02] LABS: Hematocrit 21.1 % (40.1-51.0); Mean Corpuscular Hemoglobin 29.4 pg (25.7-32.2); Mean Corpuscular Hgb Concent. 31.8 g/dL (32.3-36.5); Red Blood Count 2.28 x10^6/uL (4.63-6.08); White Blood Count 6.1 x10^3/uL (4.23-9.07)
[2025-08-03 23:06] LABS: Hemoglobin 6.7 g/dL (13.7-17.5); Platelet Count 13 x10^3/uL (163-337)
[2025-08-03 23:16] LABS: Calcium 9.1 mg/dL (8.4-10.2); Carbon Dioxide 23.0 mmol/L (22-30); Creatinine 1 1.15 mg/dL (0.66-1.25); EST GLOMERULAR FILTRATION RATE 68.0 ML/MIN; Glucose 104.0 mg/dL (74-106); Potassium 3.8 mmol/L (3.5-5.1); SGOT/AST 21.0 U/L (17-59); SGPT/ALT 8.0 U/L (0-50); Total Protein 6.1 g/dL (6.3-8.2)
[2025-08-03 23:25] LABS: Glucose, Urine Negative (Negative); Protein,Urine Dip 300 (Negative); RBC >100 /HPF (0-5); WBC 21-50 /HPF (0-5)
--- NOTE | 2025-08-03 23:45 | PCM.HP ---
History of Present Illness - Chief Complaint Chief Complaint: Urinary retention, hematuria History of Present Illness: is a 69 year old male from home with past medical history of metastatic prostate cancer, chronic anemia, hypertension, hyperlipidemia, sleep apnea, type 2 diabetes mellitus, osteoarthritis, obesity, and spondylosis presented to the ED complaining of worsening urinary retention and hematuria. Patient reports that he was recently diagnosed with metastatic prostate cancer but is not inclined to have this condition treated. Has not been evaluated by urology or hematology/oncology. Was recently admitted for observation due to abdominal pain and symptomatic anemia. Patient felt comfortable after being transfused 2 units of packed RBCs and was discharged home. In the ED today, hemoglobin was noted to be 6.7 and blood count was 13,000. Patient was to be tr ansfused 1 unit of packed RBCs and 1 platelet transfusion. Patient was also started on ceftriaxone empirically for UTI. Olsen catheter was placed for urinary retention with 1000 mL of urinary output. Patient denies fever, chills, chest pain, SOB, abdominal pain, nausea, vomiting. Does complain of chronic back pain, abdominal distension, and chronic intermittent episodes of diarrhea/constipation. He reports intentional weight loss of 100 lbs from dietary changes that started about 1 year ago and he's maintained his weight for the last 4 months. - Review of Systems Constitutional: No Symptoms Eyes: No Symptoms Ears, Nose, & Throat: No Symptoms Respiratory: No Symptoms Cardiac: No Symptoms Abdominal/Gastrointestinal: Other (abdominal distention ) Genitourinary Symptoms: Hematuria, Urinary Retention Musculoskeletal: Back Pain Skin: No Symptoms Neurological: No Symptoms Psychological: No Symptoms Endocrine: No Symptoms Hematologic/Lymphatic: No Symptoms, Anemia Immunological/Allergic: No Symptoms All Other Systems: Reviewed and Negative Medications & Allergies Home Medications: Home Medication List Atorvastatin Calcium [Lipitor] 40 mg PO DAILY 10/24/21 [History Confirmed 08/03/25] Gabapentin [Neurontin] 600 mg PO TID 10/24/21 [History Confirmed 08/03/25] Buspirone HCl 5 mg [Buspar 5 mg] 15 mg PO BID 07/29/25 [History Confirmed 08/04/25] Ondansetron ODT 4 MG [Zofran Odt 4 mg] 4 mg PO Q4H PRN PRN 07/29/25 [History Confirmed 08/04/25] Tamsulosin HCl [Flomax] 0.4 mg PO BID 07/29/25 [History Confirmed 08/03/25] Hydrocodone/Acetaminophen [Hydrocodone-Acetamin 10-325 mg] 1 tab PO QID 08/04/25 [History Confirmed 08/04/25] Allergies/Adverse Reactions: Allergies Allergy/AdvReac Type Severity Reaction Status Date / Time No Known Drug Allergies Allergy Verified 08/03/25 22:43 - Past Medical History Past Medical History: Yes Neurological History: No Pertinent History ENT History: Other Cardiac History: High Cholesterol, Hypertension Respiratory History: Sleep Apnea, Other Endocrine Medical History: Diabetes Type II Musculoskelatal History: Arthritis GI Medical History: No Pertinent History History: Other Pyscho-Social History: No Pertinent History Male Reproductive Disorders: Prostate Cancer Comment: spondylosis, sciatica, obesity, polio with L UE affected, Covid. ANEMIA. Prostate Cancer DX - Past Surgical History Past Surgical History: Yes Neuro Surgical History: No Pertinent History Cardiac History: No Pertinent History Respiratory Surgery: No Pertinent History GI Surgical History: No Pertinent History Genitourinary Surgical Hx: No Pertinent History Musculskeletal Surgical Hx: Joint Replacement Male Surgical History: Vasectomy Other Surgical History: vasectomy, bilateral lense replacement. TOTAL LEFT KNEE REPLACEMENT Significant Family History: no pertinent family hx - Social History Smoking Status: Never smoker Exposure to second hand smoke: No Alcohol: None Drug Use: none - Social Determinants of Health Will the patient participate in the screening: Yes Do you worry about a steady place to live?: No Do you have any problems with any of the following?: No known problems In the past 12 months,have you had to go without utilities?: No Have you or anyone in your house had to go without enough: No Transportation Issues: No Has anyone in your support network made you feel unsafe?: No Does the patient want assistance with any of the above?: No - Physical Exam Vital Signs: Vital Signs - 24 hr Temp Pulse Resp BP BP Pulse Ox 08/03/25 23:29 97 08/03/25 23:00 101 H 13 121/96 96 08/03/25 22:35 97 H 19 139/86 97 08/03/25 22:33 98.0 F 103 H 16 139/86 97 General Appearance: no apparent distress Neurologic Exam: alert, oriented x 3, cooperative, normal mood/affect Eye Exam: PERRL/EOMI, eyes nml inspection Ears, Nose, Throat Exam: normal ENT inspection, dry mucous membranes Neck Exam: non-tender, supple Respiratory Exam: normal breath sounds, lungs clear Cardiovascular Exam: regular rate/rhythm, normal heart sounds Gastrointestinal/Abdomen Exam: tenderness (LUQ), distention Rectal Exam: deferred Extremity Exam: normal inspection Skin Exam: normal color Results - Labs Lab/Micro Results: Lab Results-Last 24 Hours 08/03/25 08/03/25 08/03/25 Range/Units 22:38 22:58 22:58 WBC 6.1 (4.23-9.07) x10^3/uL RBC 2.28 L (4.63-6.08) x10^6/uL Hgb 6.7 L* (13.7-17.5) g/dL Hct 21.1 L (40.1-51.0) % MCV 92.5 H (79.0-92.2) fL MCH 29.4 (25.7-32.2) pg MCHC 31.8 L (32.3-36.5) g/dL RDW 18.6 H (11.6-14.4) % Plt Count 13 L* (163-337) x10^3/uL MPV 11.3 (9.4-12.4) fL Sodium 136 (135-145) mmol/L Potassium 3.8 (3.5-5.1) mmol/L Chloride 103 (98-107) mmol/L Carbon Dioxide 23 (22-30) mmol/L Anion Gap 13.2 (5-15) MEQ/L BUN 17 (9-20) mg/dL Creatinine 1.15 (0.66-1.25) mg/dL Estimated GFR 68.0 ML/MIN Glucose 104 (74-106) mg/dL Calcium 9.1 (8.4-10.2) mg/dL Total Bilirubin 0.50 (0.2-1.3) mg/dL AST 21 (17-59) U/L ALT 8 (0-50) U/L Alkaline Phosphatase 157 H (38-126) U/L Serum Total Protein 6.1 L (6.3-8.2) g/dL Albumin 3.5 (3.5-5.0) g/dL Urine Color Red A (Yellow) Urine Appearance Cloudy A (Clear) Urine pH 6.0 (4.6-8.0) Ur Specific [place] 1.015 (1.005-1.030) Urine Protein 300 A (Negative) Urine Glucose (UA) Negative (Negative) mg/dL Urine Ketones Negative (Negative) Urine Blood Large A (Negative) Urine Nitrite Negative (Negative) Urine Bilirubin Small A (Negative) Urine Urobilinogen 0.2 (0.2) mg/dL Ur Leukocyte Esterase Small A (Negative) U Hyaline Cast (Auto) NONE SEEN (0-2) /LPF Urine Microscopic RBC >100 A (0-5) /HPF Urine Microscopic WBC 21-50 A (0-5) /HPF Ur Epithelial Cells None Seen (None Seen) /HPF Urine Bacteria Rare A (None Seen) /HPF Urine Culture Reflexed ORDERED SEPARATELY (NO) Assessment/Plan (1) Acute urinary retention Current Visit: Yes Status: Acute Assessment & Plan: s/p olsen catheter placement monitor output on Flomax may benefit from urology evaluation with focus on comfort care Code(s): R33.8 - OTHER RETENTION OF URINE (2) Acute blood loss anemia Current Visit: Yes Status: Acute Assessment & Plan: Acute on chronic blood loss anemia secondary to hematuria/malignancy Being transfused 1 unit PRBCs Repeat hemoglobin post transfusion Code(s): D62 - ACUTE POSTHEMORRHAGIC ANEMIA (3) Hematuria Current Visit: Yes Status: Acute Qualifiers: Hematuria type: gross Qualified Code(s): R31.0 - Gross hematuria Assessment & Plan: Transfuse PRBC Monitor hemoglobin May benefit from Urology evaluation Code(s): R31.9 - HEMATURIA, UNSPECIFIED (4) Thrombocytopenia Current Visit: Yes Status: Chronic Assessment & Plan: Being transfued platelets in the ED Monitor clinically May benefit from hem/onc evaluation (5) Prostate cancer Current Visit: Yes Status: Chronic Assessment & Plan: Metastatic disease Patient has decided to proceed with palliative care Code(s): C61 - MALIGNANT NEOPLASM OF PROSTATE (6) Essential hypertension Current Visit: Yes Status: Chronic Assessment & Plan: Monitor BP Not currently on antihypertensives Code(s): I10 - ESSENTIAL (PRIMARY) HYPERTENSION (7) Type 2 diabetes mellitus Current Visit: Yes Status: Acute Qualifiers: Diabetes mellitus termite helper insulin use: without termite helper use Diabetes mellitus complication status: with other specified complication Qualified Code(s): E11.69 - Type 2 diabetes mellitus with other specified complication Assessment & Plan: Not currently on oral hypoglycemics or insulin Telemedicine Encounter - Telemedicine Encounter Telemedicine Encounter: "The entirety of this encounter was performed via Telemedicine" This visit was performed using real-time audio and video connection between my location and thepatients locationwith the assistance of a surrogateat the patients location. Written or verbal consent was obtained from the patient/guardian to perform this visit [facility] technology. Any patient questions regarding the telemedicine interaction were answered. Assessment/Plan - Plan Plan: Regular diet Patient was DNR but now wishes to be full code No pharmacological DVT PPX due to anemia, thromobcytopenia, and ongoing bleeding
[2025-08-03] MEDS ORDERED: TYLENOL 325 MG PO PRN (23:51)
[2025-08-03] MEDS ORDERED: ZOFRAN ODT 4 MG PO PRN (23:58)
[2025-08-04] MEDS: ROCEPHIN 1 GM / 100 ML NaCl 1 GM/100 ML IVPB IV ONE (00:04)
[2025-08-04 00:31] VITALS: BP 125/66; PULSE 92; RESP 16; O2SAT 96
[2025-08-04 00:40] VITALS: TEMP 97.4
[2025-08-04 00:57] LABS: ABO TYPING A; RH TYPING POSITIVE
[2025-08-04 01:00] LABS: CROSS MATCH (PRBC) COMPATIBLE (COMPATIBLE)
[2025-08-04 01:40] LABS: BAND 14 % (0.0-2.0); Total Cells Counted 100
[2025-08-04 01:43] LABS: Polychromasia 1+
[2025-08-04] MEDS ORDERED: MORPHINE SULFATE 2 MG INJ ONE ×2 (01:51→03:49)
[2025-08-04] MEDS: MORPHINE SULFATE 2 MG INJ IV PRN (01:55)
[2025-08-04] MEDS: MORPHINE SULFATE 2 MG INJ IV ONE (03:56)
[2025-08-04 05:15] LABS: Hematocrit 23.9 % (40.1-51.0); Hemoglobin 7.6 g/dL (13.7-17.5); Mean Corpuscular Hemoglobin 29.2 pg (25.7-32.2); Mean Corpuscular Hgb Concent. 31.8 g/dL (32.3-36.5); Red Blood Count 2.60 x10^6/uL (4.63-6.08); White Blood Count 7.2 x10^3/uL (4.23-9.07)
[2025-08-04 05:19] LABS: Platelet Count 13 x10^3/uL (163-337)
[2025-08-04 05:46] LABS: Calcium 9.1 mg/dL (8.4-10.2); Carbon Dioxide 17.0 mmol/L (22-30); Creatinine 1 1.31 mg/dL (0.66-1.25); EST GLOMERULAR FILTRATION RATE 58.2 ML/MIN; Glucose 106.0 mg/dL (74-106); Potassium 3.7 mmol/L (3.5-5.1)
[2025-08-04 06:56] LABS: Slide Review YES
[2025-08-04] MEDS ORDERED: Flomax 0.4 MG PO SCH (10:00)
[2025-08-04] MEDS ORDERED: ROCEPHIN 1 GM / 100 ML NaCl 1 GM/100 ML IVPB IV SCH (10:00)
[2025-08-04] MEDS ORDERED: LIPITOR 40MG PO SCH (10:00)
[2025-08-04] MEDS ORDERED: NORCO 10-325 MG PO SCH (10:00)
[2025-08-04] MEDS ORDERED: NON-FORMULARY ITEM (Gabapentin [Neurontin] 600 MG Tablet) PO SCH (10:00)
[2025-08-04] MEDS ORDERED: NORCO 5/325 MG PO SCH (10:00)
[2025-08-04] MEDS ORDERED: BUSPAR 5 MG PO SCH (22:00)
== END 2025-08-04 05:25 | disposition short-term general hospital (02) ==
LOC: ED 22:30 → MED SURG 08-04
PROVIDERS: ADMIT Hospitalist; ATTEND Hospitalist
DX: R33.8 Other retention of urine (principal); D62 Acute posthemorrhagic anemia; R31.0 Gross hematuria; D69.6 Thrombocytopenia, unspecified; C61 Malignant neoplasm of prostate; I10 Essential (primary) hypertension; E11.69 Type 2 diabetes mellitus with other specified complication; Z79.899 Other long term (current) drug therapy
CPT/HCPCS: 36415; 36430; 51702; 80048; 80053; 81001; 85025; 85027; 86850; 86900; 86901; 86922; 87086; 93268; 99285; G0378; P9016; Q3014